=== PATIENT | male | born 1960 | race African-American/Black ===

== ENCOUNTER 2020-03-10 13:38 | Emergency (ER) | payer MEDICAID ==
[~2020-03-10] VITALS: Ht 180.3 cm; Wt 79.4 kg
[2020-03-10 13:53] VITALS: Ht 180.3 cm; Wt 79.4 kg
[2020-03-10 15:30] VITALS: BP 123/85
== END 2020-03-10 15:30 | disposition home or self-care (01) ==
LOC: ED 13:38
DX: S76.912A Strain of unspecified muscles, fascia and tendons at thigh level, left thigh, initial encounter (principal); J45.909 Unspecified asthma, uncomplicated; W22.8XXA Striking against or struck by other objects, initial encounter; Y93.89 Activity, other specified; Y92.89 Other specified places as the place of occurrence of the external cause; Y99.8 Other external cause status
CPT/HCPCS: J1885